=== PATIENT | female | born 1975 | race Caucasian/White ===

== ENCOUNTER 2020-12-29 20:50 | Emergency (ER) | payer SELFPAY ==
[2020-12-29 21:01] VITALS: BP 118/78
--- NOTE | 2020-12-29 21:23 | ED Physician Documentation ---
History of Present Illness - Stated complaint Stated Complaint: FEVER/COV EXP - Chief complaint Chief Complaint: Resp - Additonal information Additional information: 45-year-old female presents the emergency department for evaluation of cough fatigue fevers. She has had the symptoms for about 5 days however she is concerned because she just found out that her son whom she saw last week has tested positive for COVID-19. She is not obese denies any history of hypertension or diabetes. Takes no prescribed medications. She is not immune suppressed. She is however a daily smoker. Review of Systems Constitutional: reports: Fever, Chills, Myalgias, Fatigue Eyes: reports: Reviewed and negative Ears: reports: Reviewed and negative Nose: reports: Reviewed and negative Throat: reports: Sore throat Cardiac: reports: Reviewed and negative Respiratory: reports: Reviewed and negative GI: denies: Abdominal Pain, Nausea, Vomiting, Diarrhea : reports: Reviewed and negative Skin: reports: Reviewed and negative Musculoskeletal: denies: Neck pain, Back pain Neurologic: reports: Reviewed and negative PD PAST MEDICAL HISTORY - Past Medical History Past Medical History: No - Past Surgical History Past Surgical History: Yes /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 - Present Medications Home Medications: Ambulatory Orders Medication Instructions Recorded Confirmed Iron 18 mg PO 11/22/13 11/22/13 cephALEXin [Keflex] 500 mg PO Q6H #28 capsule 11/22/13 - Allergies Allergies/Adverse Reactions: Allergies Allergy/AdvReac Type Severity Reaction Status Date / Time No Known Drug Allergies Allergy Verified 12/29/20 21:01 - Social History Does the pt smoke?: No Smoking Status: Never smoker Does the pt drink ETOH?: No Does the pt have substance abuse?: No - Immunizations Immunizations are current?: No Immunizations: TDAP >10years/unknown - POLST Patient has POLST: No PD ED PE NORMAL - General General: Alert and oriented X 3, No acute distress - HEENT HEENT: PERRL, Moist mucous membranes, Pharynx benign - Neck Neck: Supple, no meningeal sign - Cardiac Cardiac: RRR, No murmur - Respiratory Respiratory: Clear bilaterally - Abdomen Abdomen: Normal bowel sounds, Soft, Non tender, Non distended - Back Back: No CVA TTP, No spinal TTP - Derm Derm: Normal color, No rash - Extremities Extremities: No deformity, No tenderness to palpate, Normal ROM s pain - Neuro Neuro: Alert and oriented X 3, 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 This is in the setting of exposure to her son who just tested positive for COVID-19. Her cardiopulmonary exam is unremarkable. No tachypnea or hypoxia. Vital signs are essentially unremarkable sparing a mild tachycardia. Patient is not high risk and at this time would not likely meet the FDA revised criteria for MAB therapy. A COVID-19 screen is pending. Patient is advised to remain in quarantine until the results are known. Emergent return precautions for worsening symptoms or respiratory distress were discussed at length. Departure - Departure Disposition: Home, Self Care Clinical Impression: Encounter for screening for COVID-19, Sore throat Fever Qualifiers: Fever type: unspecified Qualified Code(s): R50.9 - Fever, unspecified Condition: Stable Record reviewed to determine appropriate education?: Yes Comments: You have a Covid test pending. You need to self quarantine until the result is done and negative. Do not leave your house. Do not get near anybody. The results should be done in 48 to 72 hours. We will call with a positive result, the fastest way to get a negative result for confirmation though is to go to the hospital website at [email or web address], click on the my [facility] tab and sign up for the patient portal. If any friends or family get sick and would like to have a Covid test done, but do not have signs or symptoms that would necessitate being hospitalized, we encourage testing through our coronavirus swabbing station, call [phone] to schedule an appointment.
== END 2020-12-29 21:53 | disposition home or self-care (01) ==
LOC: ED 20:50
DX: U07.1 COVID-19 (principal); F17.200 Nicotine dependence, unspecified, uncomplicated
CPT/HCPCS: 99283